=== PATIENT | female | born 1980 | race Caucasian/White ===

== ENCOUNTER 2019-09-22 18:38 | Emergency (ER) | payer BC ==
[~2019-09-22] VITALS: Ht 162.6 cm; Wt 90.7 kg
[2019-09-22 18:46] VITALS: BP_SYST 160
--- NOTE | 2019-09-22 18:54 | NUR ---
Patient triaged and placed in waiting room. VSS and patient appears in no acute distress at this time. Awaiting available bed, and MD notified of need for MSE.
--- NOTE | 2019-09-22 19:45 | NUR ---
Per accounts payables clerk, pt LWBS.
== END 2019-09-22 19:45 | disposition left against medical advice (07) ==
LOC: SED 18:38
DX: R00.2 Palpitations (principal); R11.0 Nausea; R53.1 Weakness; Z53.21 Procedure and treatment not carried out due to patient leaving prior to being seen by health care provider